=== PATIENT | female | born 1955 | race Caucasian/White ===

== ENCOUNTER 2017-09-19 17:06 | Inpatient (IN) | payer MEDICARE, MEDICAID ==
[~2017-09-19] VITALS: Ht 152.4 cm; Wt 88.0 kg
[2017-09-19 17:57] LABS: BASOPHILS % (AUTO) 0.3 % (0-1); EOSINOPHILS % (AUTO) 12.1 % (0-6); HEMATOCRIT 41.7 % (35.0-45.0); HEMOGLOBIN 14.3 g/dl (12.0-16.0); LYMPHOCYTES # (AUTO) 2.5 X10'3 (1.1-4.8); LYMPHOCYTES % (AUTO) 31.4 % (21-51); MEAN CORPUSCULAR HEMOGLOBIN 30.8 PG (27.0-31.0); MEAN CORPUSCULAR HGB CONC 34.3 % (33.0-36.5); MEAN CORPUSCULAR VOLUME 89.8 FL (78-98); MEAN PLATELET VOLUME 8.6 FL (7.4-10.4); MONOCYTES # (AUTO) 0.6 X10'3 (0-0.9); MONOCYTES % (AUTO) 6.9 % (2-12); NEUTROPHILS % (AUTO) 49.3 % (42-75); PLATELET COUNT 317 X10'3 (140-440); RED BLOOD COUNT 4.64 X10'6 (4.20-5.60); RED CELL DISTRIBUTION WIDTH 12.7 % (11.5-14.5); WHITE BLOOD COUNT 8.1 X10'3 (4.5-11.0)
[2017-09-19] MEDS ORDERED: normal saline 1000ml 1,000 ML IV ONE (18:08)
[2017-09-19] MEDS ORDERED: normal saline 1000ML IV soln IVB ONE (18:10)
[2017-09-19 18:13] LABS: ALANINE AMINOTRANSFERASE 34 U/L (12-78); ALBUMIN 3.9 G/DL (3.4-5.0); ALBUMIN/GLOBULIN RATIO 0.9 (1.1-1.5); ALKALINE PHOSPHATASE 99 IU/L (46-116); ANION GAP 10 (8-16); ASPARTATE AMINO TRANSFERASE 20 U/L (10-37); BILIRUBIN,TOTAL 0.6 MG/DL (0.1-1.0); BLOOD UREA NITROGEN 18 MG/DL (7-18); CALCIUM 10.7 MG/DL (8.5-10.1); CHLORIDE 104 MMOL/L (99-107); GLUCOSE 103 MG/DL (70-104); SODIUM 144 MMOL/L (135-145); TOTAL CARBON DIOXIDE 29.9 MMOL/L (24-32); TOTAL PROTEIN 8.3 G/DL (6.4-8.2); eGFR 46 ML/MIN
[2017-09-19 18:29] LABS: COLOR,URINE Dark Yellow (Yellow); GLUCOSE, URINE Negative (Neg); KETONES,URINE Negative (Neg); LEUKOCYTE ESTERASE ,URINE Trace (Neg); NITRITES, URINE Negative (Neg); OCCULT BLOOD,URINE Negative (Neg); PROTEIN,URINE Negative (Neg)
[2017-09-19 18:37] LABS: UA COLLECTION TYPE CLN CATCH MIDSTREAM
[2017-09-19 18:38] LABS: CLARITY,URINE Slightly Cloudy (Clear)
[2017-09-19 18:40] LABS: CREATINE KINASE 39 U/L (26-192); ETHANOL < 0.010 GM/DL (0.0-0.010); LIPASE 482 U/L (73-393); MAGNESIUM 1.9 MG/DL (1.5-2.4)
[2017-09-19] MEDS: diatr meglu/diatrizoate 30ml oral sol.-(3 dose) bottle PO SCH ×3 (18:45→20:41)
[2017-09-19 19:04] LABS: RBC,URINE 0-2 /HPF (0-2); WBC,URINE 0-4 /HPF (0-4)
[2017-09-19 19:05] LABS: BACTERIA,URINE NONE SEEN /HPF (Neg); MUCUS STRANDS NONE SEEN /LPF (Neg); SQUAMOUS EPITHELIAL CELL,UR NONE SEEN /LPF (FEW)
[2017-09-19] MEDS ORDERED: morphine 4 MG/ML inj SYRINge IM ONE (19:15)
[2017-09-19 19:16] LABS: URINE AMPHETAMINE SCREEN NEGATIVE (Neg); URINE BARBITUATE SCREEN NEGATIVE (Neg); URINE BENZODIAZEPINES SCREEN NEGATIVE (Neg); URINE CANNABINOID SCREEN NEGATIVE (Neg); URINE COCAINE SCREEN NEGATIVE (Neg); URINE METHADONE SCREEN NEGATIVE (Neg); URINE OPIATE SCREEN POSITIVE (Neg); URINE PHENCYCLIDINE SCREEN NEGATIVE (Neg)
[2017-09-19] MEDS ORDERED: morphine 2 MG/ML inj. syringe IM ONE (19:20)
[2017-09-19] MEDS ORDERED: iohexol 300mg/ml 100ml inj. ONE (20:09)
[2017-09-19] MEDS ORDERED: AMLO5TAB PO (21:04)
[2017-09-19] MEDS ORDERED: ANAS1TAB10 PO (21:08)
[2017-09-19] MEDS ORDERED: CETI10TA18 PO (21:10)
[2017-09-19] MEDS ORDERED: DULO-31 PO (21:11)
[2017-09-19] MEDS ORDERED: FENO54TA PO (21:12)
[2017-09-19] MEDS ORDERED: HYDR-565 PO (21:13)
[2017-09-19] MEDS ORDERED: LEVO125T PO (21:15)
[2017-09-19] MEDS ORDERED: ALBU8.5H8 INH (21:19)
[2017-09-19] MEDS ORDERED: LORA2TAB PO (21:19)
[2017-09-19] MEDS ORDERED: DENO60DI (21:23)
[2017-09-19] MEDS ORDERED: PROM5SYR2 (21:26)
[2017-09-19] MEDS ORDERED: LIRA0.6P2 SUBCUT (21:27)
[2017-09-19] MEDS ORDERED: morphine 2 MG/ML inj. syringe IV ONE (22:00)
[2017-09-19] MEDS ORDERED: levoFLOXACIN-Levaquin 500mg/D5 100 ML IV ONE (22:50)
[2017-09-19] MEDS ORDERED: metroNIDAZOLE-Flagyl 500mg/NS 100 ML IV ONE (22:50)
[2017-09-19] MEDS ORDERED: magnesium hydroxide 30ml (MOM) UD suspension PO PRN (23:35)
[2017-09-19] MEDS ORDERED: acetaminophen 325mg tablet PO PRN (23:35)
[2017-09-19] MEDS ORDERED: non-formulary drug (Albuterol Sulfate (Proair Hfa) 2 PUFFS) INH PRN (23:35)
[2017-09-19] MEDS ORDERED: morphine 2 MG/ML inj. syringe IV PRN (23:35)
[2017-09-19] MEDS ORDERED: mag hydrox/Alum hydrox/simeth 30ml oral suspension PO PRN (23:35)
[2017-09-19] MEDS ORDERED: HYDROcodone/acetaminophen 10/325mg tab PO PRN (23:35)
[2017-09-19] MEDS ORDERED: LORazepam 1 MG tablet PO PRN (23:45)
[2017-09-19] MEDS ORDERED: albuterol 2.5 MG/3 ML nebule NEB PRN (23:50)
[2017-09-19] MEDS ORDERED: codeine/proMETHazine 5ml UD syrup PO PRN (23:55)
[2017-09-20] MEDS: normal saline 1000ml 1,000 ML IV SCH ×3 (00:52→13:49)
[2017-09-20] MEDS: morphine 2 MG/ML inj. syringe IV PRN ×2 (01:30→05:35)
[2017-09-20 01:45] VITALS: BP 131/74
[2017-09-20 05:19] LABS: BASOPHILS % (AUTO) 0.3 % (0-1); EOSINOPHILS # (AUTO) 0.8 X10'3 (0-0.9); EOSINOPHILS % (AUTO) 13.9 % (0-6); HEMATOCRIT 33.8 % (35.0-45.0); LYMPHOCYTES # (AUTO) 1.7 X10'3 (1.1-4.8); LYMPHOCYTES % (AUTO) 31.3 % (21-51); MEAN CORPUSCULAR HEMOGLOBIN 31.2 PG (27.0-31.0); MEAN CORPUSCULAR HGB CONC 35.4 % (33.0-36.5); MEAN PLATELET VOLUME 8.7 FL (7.4-10.4); MONOCYTES # (AUTO) 0.6 X10'3 (0-0.9); MONOCYTES % (AUTO) 10.3 % (2-12); NEUTROPHILS # (AUTO) 2.4 X10'3 (1.8-7.7); NEUTROPHILS % (AUTO) 44.2 % (42-75); PLATELET COUNT 232 X10'3 (140-440); RED BLOOD COUNT 3.84 X10'6 (4.20-5.60); RED CELL DISTRIBUTION WIDTH 12.9 % (11.5-14.5); WHITE BLOOD COUNT 5.4 X10'3 (4.5-11.0)
[2017-09-20 05:34] LABS: ALANINE AMINOTRANSFERASE 62 U/L (12-78); ALBUMIN 2.9 G/DL (3.4-5.0); ALBUMIN/GLOBULIN RATIO 0.9 (1.1-1.5); ALKALINE PHOSPHATASE 148 IU/L (46-116); ANION GAP 8 (8-16); ASPARTATE AMINO TRANSFERASE 93 U/L (10-37); BILIRUBIN,TOTAL 0.7 MG/DL (0.1-1.0); BLOOD UREA NITROGEN 15 MG/DL (7-18); BUN/CREATININE RATIO 16.7 (6.6-38.0); CHLORIDE 109 MMOL/L (99-107); GLUCOSE 102 MG/DL (70-104); POTASSIUM 3.9 MMOL/L (3.5-5.1); SODIUM 145 MMOL/L (135-145); TOTAL CARBON DIOXIDE 27.9 MMOL/L (24-32); TOTAL PROTEIN 6.3 G/DL (6.4-8.2); eGFR 64 ML/MIN
[2017-09-20 05:51] LABS: HEMOGLOBIN A1C 5.3 % (4.5-6.2)
[2017-09-20 07:30] VITALS: BP 103/67
[2017-09-20] MEDS: amLODIPine 5mg tablet PO SCH (08:00)
[2017-09-20] MEDS: Liraglutide (Victoza 3-Pak) 1.8 MG SQ SCH (08:00)
[2017-09-20] MEDS: ondansetron/PF 4mg/2ml inj IV PRN (08:36)
[2017-09-20] MEDS: anastrozole 1 MG tablet PO SCH (08:40)
[2017-09-20] MEDS: duloxetine 30mg CAPSULE.DR PO SCH ×2 (08:43→20:29)
[2017-09-20] MEDS: levoTHYROXINE 125mcg tablet PO SCH (08:43)
[2017-09-20] MEDS: heparin, porcine 5000 units/ml vial SQ SCH ×2 (08:44→20:29)
[2017-09-20] MEDS: fenofibrate 48mg tablet PO SCH (08:45)
[2017-09-20] MEDS: cetirizine 10mg tablet PO SCH (08:45)
[2017-09-20] MEDS: metroNIDAZOLE-Flagyl 500mg/NS 100 ML IV SCH ×3 (08:45→23:29)
[2017-09-20] MEDS: HYDROcodone/acetaminophen 5mg/325mg tablet PO PRN ×3 (10:35→20:30)
[2017-09-20 11:43] VITALS: BP 114/52
[2017-09-20 20:00] VITALS: BP 118/68
[2017-09-20] MEDS: lactobacillus rhamnosus 10,000 MMU CELLS/CAPSULE PO SCH (20:29)
[2017-09-20] MEDS: levoFLOXACIN-Levaquin 500mg/D5 100 ML IV SCH (20:29)
[2017-09-21] VITALS: BP 94/54
[2017-09-21] MEDS: HYDROcodone/acetaminophen 5mg/325mg tablet PO PRN ×2 (01:40→18:33)
[2017-09-21 06:11] LABS: BASOPHILS % (AUTO) 0.5 % (0-1); EOSINOPHILS # (AUTO) 0.7 X10'3 (0-0.9); HEMATOCRIT 32.4 % (35.0-45.0); HEMOGLOBIN 11.4 g/dl (12.0-16.0); LYMPHOCYTES # (AUTO) 1.6 X10'3 (1.1-4.8); LYMPHOCYTES % (AUTO) 39.9 % (21-51); MEAN CORPUSCULAR HEMOGLOBIN 31.2 PG (27.0-31.0); MEAN CORPUSCULAR VOLUME 89.2 FL (78-98); MONOCYTES # (AUTO) 0.4 X10'3 (0-0.9); MONOCYTES % (AUTO) 10.4 % (2-12); NEUTROPHILS # (AUTO) 1.3 X10'3 (1.8-7.7); NEUTROPHILS % (AUTO) 32.2 % (42-75); PLATELET COUNT 209 X10'3 (140-440); RED BLOOD COUNT 3.63 X10'6 (4.20-5.60); RED CELL DISTRIBUTION WIDTH 12.7 % (11.5-14.5)
[2017-09-21 06:42] LABS: ALANINE AMINOTRANSFERASE 66 U/L (12-78); ALBUMIN 2.8 G/DL (3.4-5.0); ALBUMIN/GLOBULIN RATIO 0.9 (1.1-1.5); ALKALINE PHOSPHATASE 130 IU/L (46-116); ANION GAP 8 (8-16); ASPARTATE AMINO TRANSFERASE 49 U/L (10-37); BILIRUBIN,TOTAL 0.3 MG/DL (0.1-1.0); BLOOD UREA NITROGEN 14 MG/DL (7-18); CALCIUM 8.8 MG/DL (8.5-10.1); CHLORIDE 110 MMOL/L (99-107); GLUCOSE 101 MG/DL (70-104); POTASSIUM 4.1 MMOL/L (3.5-5.1); SODIUM 147 MMOL/L (135-145); TOTAL CARBON DIOXIDE 28.8 MMOL/L (24-32); eGFR 57 ML/MIN
[2017-09-21 07:30] VITALS: BP 104/57
[2017-09-21] MEDS: ondansetron/PF 4mg/2ml inj IV PRN (07:52)
[2017-09-21] MEDS: metroNIDAZOLE-Flagyl 500mg/NS 100 ML IV SCH ×2 (07:53→15:53)
[2017-09-21] MEDS: levoTHYROXINE 125mcg tablet PO SCH (07:53)
[2017-09-21] MEDS: morphine 2 MG/ML inj. syringe IV PRN ×3 (07:59→17:56)
[2017-09-21] MEDS: Liraglutide (Victoza 3-Pak) 1.8 MG SQ SCH (08:00)
[2017-09-21] MEDS: anastrozole 1 MG tablet PO SCH (08:01)
[2017-09-21] MEDS: lactobacillus rhamnosus 10,000 MMU CELLS/CAPSULE PO SCH ×2 (08:49→20:56)
[2017-09-21] MEDS: duloxetine 30mg CAPSULE.DR PO SCH ×2 (08:49→20:55)
[2017-09-21] MEDS: amLODIPine 5mg tablet PO SCH (08:50)
[2017-09-21] MEDS: fenofibrate 48mg tablet PO SCH (08:50)
[2017-09-21] MEDS: cetirizine 10mg tablet PO SCH (08:50)
[2017-09-21] MEDS: heparin, porcine 5000 units/ml vial SQ SCH ×2 (08:51→20:56)
[2017-09-21 11:31] LABS: ANION GAP 7 (8-16); BLOOD UREA NITROGEN 10 MG/DL (7-18); BUN/CREATININE RATIO 11.4 (6.6-38.0); CALCIUM 9.2 MG/DL (8.5-10.1); CHLORIDE 109 MMOL/L (99-107); CREATININE 0.88 MG/DL (0.40-0.90); GLUCOSE 98 MG/DL (70-104); POTASSIUM 3.8 MMOL/L (3.5-5.1); SODIUM 146 MMOL/L (135-145); TOTAL CARBON DIOXIDE 30.4 MMOL/L (24-32); eGFR 66 ML/MIN
[2017-09-21] MEDS: normal saline 1000ml 1,000 ML IV SCH (15:52)
[2017-09-21] MEDS: docusate sod 100mg capsule PO SCH ×2 (15:56→19:59)
[2017-09-21 20:00] VITALS: BP 102/52
[2017-09-21] MEDS: levoFLOXACIN-Levaquin 500mg/D5 100 ML IV SCH (20:56)
[2017-09-22] VITALS: BP 107/63
[2017-09-22] MEDS: metroNIDAZOLE-Flagyl 500mg/NS 100 ML IV SCH ×2 (00:02→07:58)
[2017-09-22] MEDS: HYDROcodone/acetaminophen 5mg/325mg tablet PO PRN (03:56)
[2017-09-22 05:14] LABS: BASOPHILS % (AUTO) 0.5 % (0-1); EOSINOPHILS # (AUTO) 0.5 X10'3 (0-0.9); EOSINOPHILS % (AUTO) 14.7 % (0-6); HEMATOCRIT 33.8 % (35.0-45.0); HEMOGLOBIN 11.9 g/dl (12.0-16.0); LYMPHOCYTES # (AUTO) 1.5 X10'3 (1.1-4.8); LYMPHOCYTES % (AUTO) 41.9 % (21-51); MEAN CORPUSCULAR HEMOGLOBIN 31.2 PG (27.0-31.0); MEAN CORPUSCULAR HGB CONC 35.1 % (33.0-36.5); MEAN CORPUSCULAR VOLUME 88.8 FL (78-98); MEAN PLATELET VOLUME 8.5 FL (7.4-10.4); MONOCYTES # (AUTO) 0.3 X10'3 (0-0.9); MONOCYTES % (AUTO) 9.1 % (2-12); NEUTROPHILS # (AUTO) 1.2 X10'3 (1.8-7.7); NEUTROPHILS % (AUTO) 33.8 % (42-75); PLATELET COUNT 218 X10'3 (140-440); RED BLOOD COUNT 3.81 X10'6 (4.20-5.60); RED CELL DISTRIBUTION WIDTH 12.7 % (11.5-14.5); WHITE BLOOD COUNT 3.7 X10'3 (4.5-11.0)
[2017-09-22 05:43] LABS: ALANINE AMINOTRANSFERASE 52 U/L (12-78); ALBUMIN/GLOBULIN RATIO 0.9 (1.1-1.5); ALKALINE PHOSPHATASE 115 IU/L (46-116); ANION GAP 9 (8-16); ASPARTATE AMINO TRANSFERASE 30 U/L (10-37); BILIRUBIN,TOTAL 0.4 MG/DL (0.1-1.0); BLOOD UREA NITROGEN 11 MG/DL (7-18); BUN/CREATININE RATIO 12.1 (6.6-38.0); CALCIUM 9.1 MG/DL (8.5-10.1); CHLORIDE 109 MMOL/L (99-107); CREATININE 0.91 MG/DL (0.40-0.90); GLUCOSE 110 MG/DL (70-104); POTASSIUM 3.7 MMOL/L (3.5-5.1); SODIUM 148 MMOL/L (135-145); TOTAL CARBON DIOXIDE 30.4 MMOL/L (24-32); TOTAL PROTEIN 6.3 G/DL (6.4-8.2); eGFR 63 ML/MIN
[2017-09-22 07:00] VITALS: BP 113/61
[2017-09-22] MEDS: amLODIPine 5mg tablet PO SCH (07:56)
[2017-09-22] MEDS: cetirizine 10mg tablet PO SCH (07:56)
[2017-09-22] MEDS: levoTHYROXINE 125mcg tablet PO SCH (07:56)
[2017-09-22] MEDS: anastrozole 1 MG tablet PO SCH (07:56)
[2017-09-22] MEDS: fenofibrate 48mg tablet PO SCH (07:56)
[2017-09-22] MEDS: heparin, porcine 5000 units/ml vial SQ SCH (07:57)
[2017-09-22] MEDS: lactobacillus rhamnosus 10,000 MMU CELLS/CAPSULE PO SCH (07:57)
[2017-09-22] MEDS: docusate sod 100mg capsule PO SCH (07:57)
[2017-09-22] MEDS: duloxetine 30mg CAPSULE.DR PO SCH (07:57)
[2017-09-22] MEDS: Liraglutide (Victoza 3-Pak) 1.8 MG SQ SCH (08:00)
[2017-09-22 11:00] VITALS: BP 93/62
[2017-09-22] MEDS ORDERED: HYDROcodone/acetaminophen 10/325mg tab PO PRN (11:25)
[2017-09-22] MEDS ORDERED: METR500T4 PO (13:17)
[2017-09-22] MEDS ORDERED: LEVO500T2 PO (13:17)
== END 2017-09-22 15:15 | disposition home or self-care (01) | DRG 392 ==
LOC: ER 17:06 → ED HOLD 23:31 → EDBEDREQ 09-20 00:43 → SUR 3N 09-20 01:00
PROVIDERS: ADMIT Internal Medicine; ATTEND Family Medicine
PROC: BW211ZZ Computerized Tomography (CT Scan) of Abdomen and Pelvis using Low Osmolar Contrast (ICD-10-PCS; principal; 2017-09-19)
DX: K57.32 Diverticulitis of large intestine without perforation or abscess without bleeding (principal); E87.0 Hyperosmolality and hypernatremia; E83.52 Hypercalcemia; M48.54XA Collapsed vertebra, not elsewhere classified, thoracic region, initial encounter for fracture; E03.9 Hypothyroidism, unspecified; M81.0 Age-related osteoporosis without current pathological fracture; E78.00 Pure hypercholesterolemia, unspecified; I10 Essential (primary) hypertension; J45.909 Unspecified asthma, uncomplicated; G47.30 Sleep apnea, unspecified; E11.9 Type 2 diabetes mellitus without complications; M79.7 Fibromyalgia; F32.9 Major depressive disorder, single episode, unspecified; Z90.12 Acquired absence of left breast and nipple; Z90.49 Acquired absence of other specified parts of digestive tract; Z79.899 Other long term (current) drug therapy; Z85.3 Personal history of malignant neoplasm of breast
CPT/HCPCS: 36415; 71045; 74177; 80048; 80053; 80305; 80320; 81001; 82550; 83036; 83605; 83690; 83735; 83874; 83970; 84439; 84443; 85025; 85610; 87040; 87070; 87088; 94760; 96361; 96372; 96374; 99285; J1644; J1956; J2270; J2405; J3490; J7030; Q9963; Q9967

== ENCOUNTER 2017-09-28 10:41 | Emergency (ER) | payer MEDICARE, MEDICAID ==
[~2017-09-28] VITALS: Ht 152.4 cm; Wt 90.9 kg
[~2017-09-28 10:41] MED LIST: ALBU8.5H8 INH; AMLO5TAB PO; ANAS1TAB10 PO; CETI10TA18 PO; DENO60DI; DULO-31 PO; FENO54TA PO; HYDR-565 PO; LEVO125T PO; LEVO500T2 PO; LIRA0.6P2 SUBCUT; LORA2TAB PO; METR500T4 PO; PROM5SYR2
[2017-09-28] MEDS ORDERED: PANT-47 PO (12:23)
[2017-09-28] MEDS ORDERED: IBUP-1985 PO (12:23)
[2017-09-28] MEDS: ketorolac trometh. 30mg/ml inj. IM ONE (12:31)
[2017-09-28 12:35] VITALS: BP 125/65
== END 2017-09-28 12:36 | disposition home or self-care (01) ==
LOC: ER 10:41
DX: M25.562 Pain in left knee (principal); E78.00 Pure hypercholesterolemia, unspecified; I10 Essential (primary) hypertension; J45.909 Unspecified asthma, uncomplicated; E11.9 Type 2 diabetes mellitus without complications; M79.7 Fibromyalgia; Z90.49 Acquired absence of other specified parts of digestive tract; Z79.899 Other long term (current) drug therapy
CPT/HCPCS: 96372; 99283; J1885

== ENCOUNTER 2018-08-12 13:59 | Observation (INO) | payer MEDICARE, MEDICAID ==
[~2018-08-12] VITALS: Ht 154.9 cm; Wt 110.0 kg
[~2018-08-12 13:59] MED LIST changes: +HYDR-4353 PO; -HYDR-565 PO; +IBUP-1985 PO; -LEVO500T2 PO; -METR500T4 PO; +PANT-47 PO
[2018-08-12 14:50] LABS: BASOPHILS % (AUTO) 0.3 % (0-1); EOSINOPHILS # (AUTO) 0.1 X10'3 (0-0.9); EOSINOPHILS % (AUTO) 0.6 % (0-6); HEMATOCRIT 40.8 % (35.0-45.0); HEMOGLOBIN 13.6 g/dl (12.0-16.0); LYMPHOCYTES # (AUTO) 1.6 X10'3 (1.1-4.8); LYMPHOCYTES % (AUTO) 17.4 % (21-51); MEAN CORPUSCULAR HEMOGLOBIN 30.5 PG (27.0-31.0); MEAN CORPUSCULAR HGB CONC 33.4 % (33.0-36.5); MEAN CORPUSCULAR VOLUME 91.1 FL (78-98); MEAN PLATELET VOLUME 9.3 FL (7.4-10.4); MONOCYTES # (AUTO) 0.6 X10'3 (0-0.9); NEUTROPHILS # (AUTO) 6.7 X10'3 (1.8-7.7); NEUTROPHILS % (AUTO) 74.7 % (42-75); PLATELET COUNT 215 X10'3 (140-440); RED BLOOD COUNT 4.48 X10'6 (4.20-5.60); RED CELL DISTRIBUTION WIDTH 12.4 % (11.5-14.5)
[2018-08-12 15:07] LABS: ALANINE AMINOTRANSFERASE 57 U/L (12-78); ALBUMIN 3.7 G/DL (3.4-5.0); ALKALINE PHOSPHATASE 66 IU/L (46-116); ANION GAP 11 (8-16); ASPARTATE AMINO TRANSFERASE 57 U/L (10-37); BILIRUBIN,TOTAL 0.8 MG/DL (0.1-1.0); BLOOD UREA NITROGEN 13 MG/DL (7-18); BUN/CREATININE RATIO 13.3 (6.6-38.0); CHLORIDE 105 MMOL/L (99-107); CREATININE 0.98 MG/DL (0.40-0.90); GLUCOSE 162 MG/DL (70-104); PARTIAL THROMBOPLASTIN TIME 23 SECONDS (22-32); POTASSIUM 3.7 MMOL/L (3.5-5.1); PROTHROMBIN TIME 9.7 SECONDS (9.0-12.0); SODIUM 143 MMOL/L (135-145); TOTAL CARBON DIOXIDE 27.1 MMOL/L (24-32); TOTAL PROTEIN 7.3 G/DL (6.4-8.2); eGFR 58 ML/MIN
[2018-08-12 17:15] LABS: D-DIMER 0.32 MG/L FEU (0-0.50)
[2018-08-12] MEDS ORDERED: morphine 2 MG/ML inj. syringe IV ONE (18:10)
[2018-08-12] MEDS ORDERED: acetaminophen 325mg tablet PO PRN ×2 (20:30)
[2018-08-12] MEDS ORDERED: diphenhydrAMINE 25mg capsule PO PRN (20:30)
[2018-08-12] MEDS ORDERED: HYDROmorphone 1 mg/ml syringe IV PRN (20:30)
[2018-08-12] MEDS ORDERED: furosemide 10 MG/1 ML 10ml inj IV SCH (20:30)
[2018-08-12] MEDS ORDERED: metoclopramide 5 mg/ml inj IV PRN (20:30)
[2018-08-12] MEDS ORDERED: magnesium hydroxide 30ml (MOM) UD suspension PO PRN (20:30)
[2018-08-12] MEDS ORDERED: mag hydrox/Alum hydrox/simeth 30ml oral suspension PO PRN (20:30)
[2018-08-12] MEDS ORDERED: bisacodyl 10mg suppository rectal RC PRN (20:30)
[2018-08-12] MEDS ORDERED: acetaminophen 650mg rectal suppository RC PRN (20:30)
[2018-08-12] MEDS ORDERED: morphine 4 MG/ML inj SYRINge IV PRN (20:30)
[2018-08-12] MEDS ORDERED: diphenhydrAMINE 50 mg/ml inj IV PRN (20:30)
[2018-08-12] MEDS ORDERED: ondansetron/PF 4mg/2ml inj IV PRN (20:30)
[2018-08-12] MEDS ORDERED: dextrose 50%-water 50ml dispensing syringe IV PRN ×2 (20:40)
[2018-08-12] MEDS ORDERED: insulin Lispro (HumaLOG) vial - multi-dose SQ SCH (20:40)
[2018-08-12] MEDS ORDERED: MESSAGE TO PHARMACY PO ONE (20:40)
[2018-08-12] MEDS ORDERED: dextrose ORAL solution 15 GM/59 ML bottle PO PRN ×2 (20:40)
[2018-08-12] MEDS ORDERED: glucagon, human recombinant 1mg kit SUBCUT PRN (20:40)
[2018-08-12] MEDS ORDERED: nitroGLYCERIN 0.4mg SUBLingual tab SL PRN (20:40)
[2018-08-12] MEDS ORDERED: metoprolol tartrate 1mg/ml inj IV PRN (20:40)
[2018-08-12] MEDS ORDERED: insulin glargine (Lantus) pen - multi-dose SQ SCH (21:00)
[2018-08-12] MEDS ORDERED: temazepam 15mg capsule PO PRN (21:00)
[2018-08-12 21:22] LABS: HEMOGLOBIN A1C 6.2 % (4.5-6.2)
[2018-08-12 21:28] LABS: LIPASE 149 U/L (73-393); PHOSPHORUS 3.2 MG/DL (2.3-4.5)
[2018-08-12] MEDS: lisinopril 10 MG tablet PO SCH (21:41)
[2018-08-12] MEDS ORDERED: CHOL10002 PO (22:29)
[2018-08-12] MEDS ORDERED: ALBU18HF2 INH (22:29)
--- NOTE | 2018-08-12 23:23 | NUR ---
PT PLACED ON HOSPITAL BED.
[2018-08-13] VITALS (12 sets, daily range): BP systolic 66–106; BP diastolic 37–76
[2018-08-13] MEDS ORDERED: CODEINE PRN (01:45)
[2018-08-13] MEDS ORDERED: non-formulary drug (Albuterol Sulfate (Ventolin Hfa) 2 PUFFS) INH SCH (01:45)
[2018-08-13] MEDS ORDERED: PROMETHAZINE HCL PRN (01:45)
[2018-08-13] MEDS ORDERED: albuterol 2.5 MG/3 ML nebule NEB PRN (04:00)
[2018-08-13 05:07] LABS: CLARITY,URINE CLEAR (Clear); COLOR,URINE YELLOW (Yellow); UA COLLECTION TYPE CLN CATCH MIDSTREAM
[2018-08-13 05:08] LABS: GLUCOSE, URINE NEGATIVE (Neg); KETONES,URINE NEGATIVE (Neg); LEUKOCYTE ESTERASE ,URINE NEGATIVE (Neg); NITRITES, URINE NEGATIVE (Neg); OCCULT BLOOD,URINE SMALL (Neg); PROTEIN,URINE NEGATIVE (Neg); UROBILINOGEN,URINE 0.2 E.U/dL (0.2-1.0)
[2018-08-13 05:11] LABS: BACTERIA,URINE FEW /HPF (Neg); RBC,URINE 0-2 /HPF (0-2); SQUAMOUS EPITHELIAL CELL,UR FEW /LPF (FEW)
[2018-08-13 05:17] LABS: BASOPHILS % (AUTO) 0.3 % (0-1); EOSINOPHILS % (AUTO) 0.2 % (0-6); HEMATOCRIT 36.8 % (35.0-45.0); HEMOGLOBIN 12.9 g/dl (12.0-16.0); LYMPHOCYTES # (AUTO) 1.8 X10'3 (1.1-4.8); LYMPHOCYTES % (AUTO) 16.1 % (21-51); MEAN CORPUSCULAR HEMOGLOBIN 31.9 PG (27.0-31.0); MEAN CORPUSCULAR VOLUME 91.1 FL (78-98); MEAN PLATELET VOLUME 9.3 FL (7.4-10.4); MONOCYTES # (AUTO) 1.1 X10'3 (0-0.9); MONOCYTES % (AUTO) 9.8 % (2-12); NEUTROPHILS # (AUTO) 8.2 X10'3 (1.8-7.7); NEUTROPHILS % (AUTO) 73.6 % (42-75); PLATELET COUNT 187 X10'3 (140-440); RED BLOOD COUNT 4.04 X10'6 (4.20-5.60); RED CELL DISTRIBUTION WIDTH 12.3 % (11.5-14.5); WHITE BLOOD COUNT 11.1 X10'3 (4.5-11.0)
[2018-08-13 05:18] LABS: ALANINE AMINOTRANSFERASE 91 U/L (12-78); ALBUMIN 3.3 G/DL (3.4-5.0); ALKALINE PHOSPHATASE 77 IU/L (46-116); ANION GAP 10 (8-16); ASPARTATE AMINO TRANSFERASE 97 U/L (10-37); BILIRUBIN,TOTAL 1.5 MG/DL (0.1-1.0); BLOOD UREA NITROGEN 18 MG/DL (7-18); BUN/CREATININE RATIO 15.9 (6.6-38.0); CALCIUM 8.3 MG/DL (8.5-10.1); CHLORIDE 101 MMOL/L (99-107); CHOL/HDL RATIO 3.1 (0.00-4.99); CHOLESTEROL 169 MG/DL (0-200); CREATININE 1.13 MG/DL (0.40-0.90); GLUCOSE 129 MG/DL (70-104); HDL CHOLESTEROL 54 MG/DL (35-60); LDL CHOLESTEROL 93 MG/DL (50-100); POTASSIUM 3.8 MMOL/L (3.5-5.1); SODIUM 139 MMOL/L (135-145); TOTAL CARBON DIOXIDE 28.4 MMOL/L (24-32); TOTAL PROTEIN 6.6 G/DL (6.4-8.2); TRIGLYCERIDES 114 MG/DL (20-135); eGFR 49 ML/MIN
[2018-08-13] MEDS ORDERED: regadenoson 0.4mg/5ml syringe IV PRN (07:00)
[2018-08-13] MEDS ORDERED: aminophylline 250mg/10ml inj. IV PRN (07:00)
--- NOTE | 2018-08-13 07:56 | NUR ---
STRESS TEST STAFF AT BEDSIDE DISCUSSING PROCESS AND ASKING QUESTIONS FOR TESTING NOW.
[2018-08-13] MEDS ORDERED: anastrozole 1 MG tablet PO SCH (08:00)
[2018-08-13] MEDS ORDERED: pantoprazole 40mg Tablet.DR PO SCH (08:00)
[2018-08-13] MEDS ORDERED: duloxetine 30mg CAPSULE.DR PO SCH (08:00)
[2018-08-13] MEDS ORDERED: docusate sod 100mg capsule PO SCH (08:00)
[2018-08-13] MEDS ORDERED: amLODIPine 5mg tablet PO SCH (08:00)
[2018-08-13] MEDS ORDERED: enoxaparin 100mg/ml syringe SQ SCH (08:00)
[2018-08-13] MEDS ORDERED: fenofibrate 48mg tablet PO SCH (08:00)
[2018-08-13] MEDS ORDERED: nitroGLYCERIN 0.1mg/hour patch TD SCH (08:00)
[2018-08-13] MEDS ORDERED: vitamin D (cholecalciferol) 1,000 unit tablet PO SCH (08:00)
[2018-08-13] MEDS ORDERED: cetirizine 10mg tablet PO SCH (08:00)
[2018-08-13] MEDS: lisinopril 10 MG tablet PO SCH (08:00)
[2018-08-13] MEDS ORDERED: atorvastatin 20mg tablet PO SCH (08:00)
[2018-08-13] MEDS ORDERED: LORazepam 1 MG tablet PO PRN (08:00)
[2018-08-13] MEDS: HYDROcodone/acetaminophen 10/325mg tab PO PRN ×2 (08:04→13:58)
--- NOTE | 2018-08-13 08:06 | NUR ---
MEDICATED PT WITH NORCO AND STOOL SOFTENER, HOLDING MORNING MEDS FOR STRESS TEST.
[2018-08-13] MEDS ORDERED: aspirin 81mg tab.chew PO SCH (08:30)
[2018-08-13] MEDS ORDERED: regadenoson 0.4mg/5ml syringe IV ONE (09:44)
[2018-08-13] MEDS ORDERED: aminophylline inj. 10 ML IV ONE (09:44)
--- NOTE | 2018-08-13 10:40 | NUR ---
Assumed care of pt. Off floor for stress test; will evaluate upon return to ER.
--- NOTE | 2018-08-13 10:45 | NUR ---
DR GODINEZ CALLED BACK, ASKED PROVIDER TO REVIEW UA RESULTS COLLECTED AFTER ADMISSION AND URINE WBC 5-10
--- NOTE | 2018-08-13 11:05 | NUR ---
went to pt's room to get EKG but patient is in stress testing
--- NOTE | 2018-08-13 11:12 | NUR ---
Pt returned from stress test; c/o mid back pain with inspiration. VSS. Awaiting inpatient bed. Breakfast tray ordered and meds to be given as scheduled. Will continue to monitor.
[2018-08-13] MEDS ORDERED: ketorolac tromethamine 15mg/ml inj. IV PRN (12:55)
[2018-08-13] MEDS ORDERED: azithromycin 250mg tablet PO ONE (12:55)
--- NOTE | 2018-08-13 15:31 | NUR ---
Dr. Davis called to reassess pt and will DC home from ER.
[2018-08-13] MEDS ORDERED: AZI25OT PO (15:44)
[2018-08-13] MEDS ORDERED: KETO10TA2 PO (15:44)
[2018-08-14] MEDS ORDERED: azithromycin 250mg tablet PO SCH (08:00)
== END 2018-08-13 16:24 | disposition home or self-care (01) ==
LOC: ER 13:59 → INTOOBSV 20:30 → ED HOLD 20:30
PROVIDERS: ADMIT Family Medicine; ATTEND Family Medicine
DX: R07.89 Other chest pain (principal); I11.0 Hypertensive heart disease with heart failure; I50.33 Acute on chronic diastolic (congestive) heart failure; E11.9 Type 2 diabetes mellitus without complications; J44.9 Chronic obstructive pulmonary disease, unspecified; J20.9 Acute bronchitis, unspecified; M81.0 Age-related osteoporosis without current pathological fracture; E03.9 Hypothyroidism, unspecified; E78.00 Pure hypercholesterolemia, unspecified; G89.4 Chronic pain syndrome; R51 Headache; G47.30 Sleep apnea, unspecified; F51.9 Sleep disorder not due to a substance or known physiological condition, unspecified
CPT/HCPCS: 36415; 71045; 78452; 80053; 80061; 81001; 82948; 83036; 83690; 83735; 83880; 84100; 84439; 84443; 84480; 84484; 85025; 85379; 85610; 85730; 87088; 93005; 93017; 93306; 96374; 96375; 96376; 99285; A9500; G0378; J0280; J1885; J1940; J2270; J2405; J1815